=== PATIENT | female | born 1970 | race Caucasian/White ===

== ENCOUNTER 2017-06-16 12:53 | Emergency (ER) | payer MEDICAID, OTHER ==
[~2017-06-16] VITALS: Ht 154.9 cm; Wt 69.9 kg
[~2017-06-16 12:53] MED LIST: SLOMAG PO
[2017-06-16 12:59] VITALS: BP 144/75
--- NOTE | 2017-06-16 14:50 | NUR ---
PATIENT PRESENTS TO ED WITH suprapubic pain x 1 wk mild pressure upon voiding, frequency, urgency denies dc, denies blood in urine hx---arthritis rx----plaquenil; DENIES N/V/D; SKIN IS PINK/WARM/DRY; AAOX4 WITH EVEN AND STEADY GAIT; LUNGS CLEAR BL; HR EVEN AND REGULAR; PT DENIES ANY FEVER, CP, SOB, OR COUGH AT THIS TIME; PATIENT STATES PAIN OF 5/10 AT THIS TIME; VSS; PATIENT POSITIONED FOR COMFORT; HOB ELEVATED; BEDRAILS UP X2; BED DOWN. ER MD MADE AWARE OF PT STATUS.
--- NOTE | 2017-06-16 15:21 | NUR ---
47/F C/O suprapubic pain GOES FROM LEFT TO RIGHT SIDE x1 wk WITH mild pressure upon voiding, ALONG WITH frequency AND urgency. Denies blood in urine. STS PT HAS CHILLS. PT STS HX arthritis, FIBROIDS AND GALLSTONES. PT TAKING plaquenil. PT DENIES N/V/D; SKIN IS INTACT, PINK/WARM/DRY; AAOX4, WITH EVEN AND STEADY GAIT; LUNGS CLEAR BL, BREATHING UNLABORED; HR EVEN AND REGULAR, BL PERIPHERAL PULSES PRESENT; BS ACTIVE X4, TENDERNESS TO PALPATION, PT DENIES ANY FEVER, CP, SOB, OR COUGH AT THIS TIME; PT STATES 0/10 PAIN AT THIS TIME; VSS; PATIENT POSITIONED FOR COMFORT; HOB ELEVATED; BEDRAILS UP X2; BED DOWN.
[2017-06-16 15:43] LABS: APPEARANCE,URINE CLEAR (CLEAR); BILIRUBIN,URINE NEGATIVE (NEGATIVE); BLOOD, URINE NEGATIVE (NEGATIVE); COLOR,URINE YELLOW (YELLOW); LEUKOCYTE ESTERASE ,URINE TRACE (NEGATIVE); NITRITE, URINE NEGATIVE (NEGATIVE); PH,URINE 6.5 (5.0-9.0); UGLUCOSE NEGATIVE (NEGATIVE)
[2017-06-16 15:49] LABS: HEMOGLOBIN 14.5 g/dL (12.0-16.0); RED CELL DISTRIBUTION WIDTH 12.7 % (11.6-13.7)
[2017-06-16 15:52] LABS: RBC,URINE 0-5 (RARE) /HPF (0-5)
[2017-06-16 15:56] LABS: HEMATOCRIT 43.5 % (36-48); MEAN CORPUSCULAR HEMOGLOBIN 29 pg (27-31); MEAN CORPUSCULAR HGB CONC 33 g/dL (33-37); MEAN CORPUSCULAR VOLUME 87 fL (80-94); PLATELET COUNT (AUTO) 199 K/uL (140-450); RED BLOOD CELL COUNT(AUTO) 5.02 MIL/uL (4.20-5.40); WHITE BLOOD COUNT (AUTO) 6.2 K/uL (4.8-10.8)
[2017-06-16 15:57] LABS: ALBUMIN 3.8 g/dL (3.4-5.0); ANION GAP 13.8 (8-16); CARBON DIOXIDE 27.2 mmol/L (21-32); CREATININE 0.8 mg/dL (0.6-1.3); TOTAL BILIRUBIN 0.3 mg/dL (0.0-1.0)
[2017-06-16 16:11] LABS: BASOPHILS % (MANUAL) 0 % (0-2); EOSINOPHILS % (MANUAL) 2 % (0-4); LYMPHOCYTES % (MANUAL) 42 % (20-46); MONOCYTES % (MANUAL) 7 % (5-12)
[2017-06-16] MEDS ORDERED: NACL 0.9% 1,000 ML IV ONE (17:05)
--- NOTE | 2017-06-16 17:15 | NUR ---
PT TAKEN TO CT VIA GURNEY BY TECH.
[2017-06-16] MEDS ORDERED: MORPHINE SULFATE 4 MG/ML SYR IVP ONE (18:35)
--- NOTE | 2017-06-16 19:21 | NUR ---
REPORT GIVEN TO LUDWIG ARNETT. PT IN CT AT THIS TIME.
[2017-06-16 20:42] VITALS: BP 140/97
--- NOTE | 2017-06-16 20:42 | NUR ---
IV removed, catheter intact and site benign. Applied folded 4x4 gauze and tape to stop bleeding.
--- NOTE | 2017-06-16 20:43 | NUR ---
Patient discharged with v/s stable. Written and verbal after care instructions given and explained. Patient alert, oriented and verbalized understanding of instructions. Ambulatory with steady gait. All questions addressed prior to discharge. ID band removed. Patient advised to follow up with PMD. Rx of MOTRIN 800MG, MACROBID 100 MG & PYRIDIUM 100 MG given. Patient educated on indication of medication including possible reaction and side effects. Opportunity to ask questions provided and answered.
== END 2017-06-16 20:43 | disposition home or self-care (01) ==
LOC: MED 12:53
DX: N39.0 Urinary tract infection, site not specified (principal); R03.0 Elevated blood-pressure reading, without diagnosis of hypertension; M13.80 Other specified arthritis, unspecified site; Z79.899 Other long term (current) drug therapy
CPT/HCPCS: 36415; 74177; 80053; 81001; 81025; 82150; 83690; 84703; 85025; 87086; 96361; 96374; 99285; J2270; J7030; Q9967